=== PATIENT | female | born 1980 | race Caucasian/White ===

== ENCOUNTER 2017-02-13 05:54 | Day surgery (SDC) | payer OTHER ==
[~2017-02-13 05:54] MED LIST: DiMENhydriNATE IV* 50 MG/ML VIAL IV PUSH PRN; Morphine INJ* 2 MG/ML 1 ML CARPUJECT IV PRN; PROCHLORPERAZINE INJ 5 MG/ML 2 ML VIAL IV PRN; Scopolamine 1.5 mg* PATCH TRANSDERM PRN
[2017-02-13] MEDS ORDERED: Famotidine IV* 10 MG/ML 2 ML (20 mg) IV ONE (06:00)
[2017-02-13] MEDS ORDERED: Buffered Lidocaine 0.9% SYRIN* 5 ML/SYR SYRINGE INTRADERM ONE (06:00)
[2017-02-13] MEDS ORDERED: Buffered Lidocaine 0.9% SYRIN* 5 ML/SYR SYRINGE ONE (06:05)
[2017-02-13] MEDS ORDERED: Famotidine IV* 10 MG/ML 2 ML (20 mg) ONE (06:05)
[2017-02-13] MEDS ORDERED: ceFAZolin 2 GM PREMIX (*) 2 GM/50 ML BAG IVPB ONE (06:05)
[2017-02-13] MEDS ORDERED: Dexamethasone TAB* 0.5 MG PO ONE (06:30)
[2017-02-13] MEDS ORDERED: fentaNYL* 50 MCG/ML 2 ML VIAL (100 MCG VIAL) ONE ×2 (07:08→08:55)
[2017-02-13] MEDS ORDERED: KETAMINE HCL* 50 MG/ML 10 ML VIAL ONE (07:08)
[2017-02-13] MEDS ORDERED: Midazolam* 1 MG/ML 10 ML VIAL (10 MG) ONE (07:08)
[2017-02-13] MEDS ORDERED: Bupivacaine 0.5% SDV PF* 30 ML VIAL ONE (07:16)
[2017-02-13] MEDS ORDERED: Lidocaine 1% MPF wEPI 200,000* 30 ML SDV ONE (07:16)
[2017-02-13] MEDS ORDERED: Morphine INJ* 10 MG/ML 1 ML CARPUJECT ONE ×2 (07:35→08:55)
[2017-02-13] MEDS ORDERED: Ondansetron INJ* 2 MG/ML VIAL ONE (07:50)
[2017-02-13] MEDS ORDERED: Ketorolac INJ* 30 MG/ML 1 ML VIAL ONE (07:50)
[2017-02-13] MEDS ORDERED: Lidocaine 2% PF * 5 ML VIAL ONE (07:50)
[2017-02-13] MEDS ORDERED: Dexamethasone IV* 4 MG/ML 1 ML (4 MG) ONE (07:50)
[2017-02-13] MEDS ORDERED: Propofol* 10 MG/ML 20 ML BTL IV PUSH ONE (07:50)
[2017-02-13] MEDS: fentaNYL* 50 MCG/ML 2 ML VIAL (100 MCG VIAL) IV PRN ×2 (08:56→09:17)
[2017-02-13] MEDS ORDERED: oxyCODONE/Acetamin 5/325 MG* TAB ONE (09:02)
[2017-02-13] MEDS: oxyCODONE/Acetamin 5/325 MG* TAB PO PRN ×2 (09:03→09:04)
[2017-02-13] MEDS ORDERED: DiMENhydriNATE IV* 50 MG/ML VIAL ONE (09:27)
[2017-02-13] MEDS ORDERED: Scopolamine 1.5 mg* PATCH ONE (09:27)
[2017-02-13 10:18] VITALS: BP 121/68
--- NOTE | 2017-02-13 10:38 | OP ---
DATE OF OPERATION: 02/13/17 [facility] DATE OF : 76 SURGEON: Donal Mclean MD SEMICONDUCTOR BONDER: Roxie Thompson RPA ANESTHESIOLOGIST: Luc Haq MD ANESTHESIA: General. PRE-OP DIAGNOSES: 1. Painful hardware right ankle. 2. Nonunion medial malleolus right ankle. POST-OP DIAGNOSES: 1. Painful hardware right ankle. 2. Nonunion medial malleolus right ankle. OPERATIVE PROCEDURES: 1. Removal of hardware right ankle. 2. Removal bony nonunion medial malleolus. ESTIMATED BLOOD LOSS: Minimal. COMPLICATIONS: None. SUMMARY: Ms. Elkins is a 36-year-old female who 4 years ago had sustained a trimalleolar fracture. She underwent an ORIF of the lateral malleolus as the medial and posterior malleoli were only minimally displaced. Posteriorly, she healed in well as well as laterally, but that medial piece never fully healed in. She had been able to walk and get around and do activities, but had continued troubles with pain, both over the lateral hardware as well as over that medial malleolus. I discussed with her that removal of the plate and screws as well as the bony piece should work well to decrease her pain and improve her function. Risks of surgery such as infection, scar formation, stiffness, DVT, and pulmonary embolism were some of the risks discussed. She had wished to proceed with procedure. DESCRIPTION OF PROCEDURE: The patient was brought to the OR and LMA was placed. Right ankle was prepped and then draped. Skin over the incisional area was infiltrated using a 50:50 mixture of 0.5% Marcaine with 1% lidocaine with epinephrine. Incision was made using the old scar and was carried down through the skin and subcutaneous scar. I could easily palpate the screw heads and sharp dissection was carried out over the screw heads and used to dig out the scar from within the head itself, so the screw recycle driver could be fully seated. One by one, screws were removed. Periosteal elevator was then used to remove some of the bone that had grown over the edge of the plate and the plate itself was eventually freed up. Curette and small osteotome was used to stimulate the bone to encourage a healing response. Wound was irrigated using a bulb syringe and attention was turned medially. Incision was made a little bit towards the posterior aspect of the medial malleolus to stay away from the saphenous nerve and vein. Incision was carried down through the skin and subcutaneous tissues were bluntly divided. Fascia over the bone and deltoid were easily palpable and incision was made in line with those fibers. Using a freer, I could fall in to the nonunion area as well as come around where the posterior tib tendons ran inferiorly. Using the freer and periosteal, I was able to slowly expose around and a small extending incision had to be made in the fascia so that I could see a little bit better. With this, I could now come around that loose piece and piece was removed. Wound was irrigated using a bulb syringe and the fascia was repaired using 1 #2 Ethibond suture and then 2-0 Ethibond sutures. She was nice and stable with a drawer sign. Wound was again irrigated using a bulb syringe and the subcutaneous tissues were approximated with 2-0 Vicryl. Skin was closed using nylon. Sterile dressing and a posterior mold splint were applied in the OR. The patient had the LMA removed in the OR and was stable on transfer to the recovery room. DISPOSITION/DISCHARGE SUMMARY: Ms. Elkins is a 36-year-old female who just underwent removal of hardware and a bony nonunion from her right ankle. She tolerated the procedure well and there were no complications. She is currently rolling into the recovery room. When she wakes a bit more from her general anesthesia, can tolerate p.o., has her pain well controlled and void, she will be discharged home. Prescription for [place] has been e-scribed in. She has instructions to keep her dressing clean, dry, and intact for the next 3 days, but after that may take dressing down, cover sutures with bandage, may shower, wash and get it wet, but should not soak it. She can go into the CAM walker that she has at home. She may fully weight bear as tolerated. I would like to see her in the office in approximately 10 days, remove her sutures, make sure she is doing well. If there are any problems or anything odd should occur, there are instructions to give the office a call. [id number]/[facility] #: [id number] DENNIS
[2017-02-16] MEDS ORDERED: Scopolamine PATCH Remove* 1 NOTE MISC PATCH OFF ONE (05:41)
== END 2017-02-13 10:49 | disposition home or self-care (01) ==
LOC: OR 05:54
PROVIDERS: ATTEND Orthopaedic Surgery
DX: T84.84XA Pain due to internal orthopedic prosthetic devices, implants and grafts, initial encounter (principal); Y83.1 Surgical operation with implant of artificial internal device as the cause of abnormal reaction of the patient, or of later complication, without mention of misadventure at the time of the procedure; S82.51XK Displaced fracture of medial malleolus of right tibia, subsequent encounter for closed fracture with nonunion; X58.XXXD Exposure to other specified factors, subsequent encounter; Y92.9 Unspecified place or not applicable; F17.200 Nicotine dependence, unspecified, uncomplicated; J45.909 Unspecified asthma, uncomplicated
CPT/HCPCS: 88300; A9270-GY; J0690; J1100; J1240; J1885; J2001; J2250; J2270; J2405; J2704; J3010

== ENCOUNTER 2017-12-09 11:35 | Emergency (ER) | payer OTHER ==
[2017-12-09 11:43] VITALS: BP 144/71
--- NOTE | 2017-12-09 11:57 | ED ---
Lower Extremity - HPI Summary HPI Summary: Patient presents with right ankle pain since injury last night. She reports she was dancing after having a couple of beers and as she was walking down the [place], she twisted her ankle and had abrupt swelling and pain. She denies numbness, tingling, weakness but has pain with weightbearing. She applied ice last night and this morning and took ibuprofen last night but has not taken anything this morning. She reports no pain with her leg elevated and at rest and she is able to move her ankle however does report some stiffness with flexion and extension. She's been using crutches to avoid weightbearing. She reports a history of right ankle surgery which required screws and plates a few years ago with Dr. Mclean. He has since removed these and patient has been doing well however she reports this ankle is "weak" as result. No other injuries to report as result of this injury. 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 Hx Last Menstrual Period: 2007 Pain Intensity: 9 - Allergies/Home Medications Allergies/Adverse Reactions: Allergies Allergy/AdvReac Type Severity Reaction Status Date / Time gabapentin Allergy Altered Verified 12/09/17 11:44 Mental Status PMH/Surg Hx/FS Hx/Imm Hx Previously Healthy: Yes Endocrine/Hematology History: Denies: Hx Anticoagulant Therapy, Hx Blood Disorders, Hx Diabetes, Hx Systemic Lupus Erythematosus, Hx Thyroid Disease Cardiovascular History: Denies: Hx Congestive Heart Failure, Hx Hypertension, Hx Pacemaker/ICD, Other Cardiovascular Problems/Disorders Respiratory History: Reports: Hx Asthma - INHALER PRN, Hx Pneumonia Denies: Hx Chronic Obstructive Pulmonary Disease (COPD), Other Respiratory Problems/Disorders GI History: Reports: Hx Gastroesophageal Reflux Disease Denies: Hx Ulcer, Other GI Disorders History: Denies: Hx Dialysis, Hx Renal Disease Musculoskeletal History: Reports: Hx Arthritis - HANDS, BACK, Hx Back Problems - 2 "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 Mclean Denies: Hx Rheumatoid Arthritis, Hx Scoliosis Sensory History: Denies: Hx Contacts or Glasses, Hx Hearing Aid Opthamlomology History: Denies: Hx Contacts or Glasses Neurological History: Denies: Hx Headaches, Other Neuro Impairments/Disorders Psychiatric History: Reports: Hx Anxiety - NO MEDS CURRENTLY, Hx Depression - NO MEDS Denies: Hx Panic Disorder - Cancer History Hx Chemotherapy: No - Surgical History Surgery Procedure, Year, and Place: 2000 & 2004 LAPRASCOPIC. 2007 HYSTERECTOMY and Oophorectomy [facility]. 1997 LEFT LITTLE FINGER fracture ORIF [facility]. right ankle ORIF, 02/2015, [facility] - 5 screws and a plate in place. tonsillectomy Hx Anesthesia Reactions: No Infectious Disease History: No Infectious Disease History: Reports: Hx Shingles - in 5th grade Denies: Hx Clostridium Difficile, Hx Hepatitis, Hx Human Immunodeficiency Virus (HIV), Hx of Known/Suspected MRSA, Hx Tuberculosis, Hx Known/Suspected VRE , Hx Known/Suspected VRSA, History Other Infectious Disease, Traveled Outside the [place] in Last 30 Days - Family History Known Family History: Positive: None Negative: Blood Disorder - Social History Occupation: Employed Full-time - laundry person at a hotel Alcohol Use: Weekly Alcohol Amount: 2-3 DRINKS/WEEK Substance Use Type: Reports: Marijuana - occasionally Hx Tobacco Use: Yes - quit Smoking Status (MU): Former Smoker Type: Cigarettes Amount Used/How Often: 1/3 PPD Have You Smoked in the Last Year: No Review of Systems Positive: Arthralgia, Decreased ROM - d/t stiffness, Edema Positive: Bruising Neurological: Negative Psychological: Normal All Other Systems Reviewed And Are Negative: Yes Physical Exam Triage Information Reviewed: Yes Vital Signs On Initial Exam: Initial Vitals Temp Pulse Resp BP Pulse Ox 98.6 F 87 20 144/71 99 12/09/17 11:40 12/09/17 11:40 12/09/17 11:40 12/09/17 11:40 12/09/17 11:40 Vital Signs Reviewed: Yes Appearance: Positive: Well-Appearing, No Pain Distress, Obese Skin: Positive: Warm, Skin Color Reflects Adequate Perfusion, Dry - bradley edema and ecchymosis over Rt lateral malleolous - warm to touch and TTP - no skin breakdown; healed scarring over medial and lateral Rt ankles Head/Face: Positive: Normal Head/Face Inspection Eyes: Positive: EOMI ENT: Positive: Hearing grossly normal Respiratory/Lung Sounds: Positive: Breath Sounds Present Cardiovascular: Positive: Pulses are Symmetrical in both Upper and Lower Extremities Musculoskeletal: Positive: Strength/ROM Intact - no bradley laxity, Pain @ - Rt lateral malleolus and anterior ankle mortise; tibia and fibula prox to ankle joint and MT's and toes and NTTP Neurological: Positive: Normal, Sensory/Motor Intact, Alert, Oriented to Person Place, Time, CN Intact II-III, Reflexes Intact Psychiatric: Positive: Normal Diagnostics - Vital Signs Vital Signs Temp Pulse Resp BP Pulse Ox 12/09/17 11:40 98.6 F 87 20 144/71 99 - Laboratory Lab Statement: Any lab studies that have been ordered have been reviewed, and results considered in the medical decision making process. Lower Extremity Course/Dx - Course Course Of Treatment: Rt ankle XR: distal fib fx, non-displaced and no widening of ankle mortise. Applied cam boot and pt already has cructhes. Will f/u w/ ortho this week. Reviewed danger s/sx of when to go to ED - Diagnoses Provider Diagnoses: Closed fracture of right distal fibula Discharge - Sign-Out/Discharge Documenting (check all that apply): Patient Departure All imaging exams completed and their final reports reviewed: Yes - Discharge Plan Condition: Stable Disposition: HOME Patient Education Materials: Ankle Fracture (ED), Crutch Instructions (ED) Forms: *Work Release Referrals: Donal Mclean MD [Medical Doctor] - Additional Instructions: REST, ICE, ELEVATE AND KEEP CAM BOOT IN PLACE UNTIL SEEN BY ORTHOPEDICS. Use cructhes to avoid weight bearing. Call orthopedics Monday to schedule follow-up this week. You may take ibuprofen alternating with acetaminophen as needed for pain. *If you develop numbness, tingling, weakness, swelling or skin discoloration, remove boot and elevate leg for 20 minutes. If symptoms persist, return to ED - Billing Disposition and Condition Condition: STABLE Disposition: Home
--- NOTE | 2017-12-09 12:17 | RAD ---
HISTORY: Rt ankle injury w/ lat swelling, bruising COMPARISONS: April 13, 2016 VIEWS: 3 , Frontal, lateral, and oblique views of the right ankle FINDINGS: BONE DENSITY: Normal. BONES: There has been interval removal of the fixation plate of the distal fibula. There is an oblique nondisplaced fracture of the distal fibula. There are multiple bone fragments consistent with remote avulsion injury of the medial malleolus. JOINTS: There is no arthropathy. The tibiotalar and fibulotalar ventricles are normal. ALIGNMENT: There is no dislocation. SOFT TISSUES: There is circumferential soft tissue swelling. OTHER FINDINGS: None. IMPRESSION: 1. OBLIQUE NONDISPLACED FRACTURE OF THE DISTAL FIBULA. 2. EVIDENCE OF REMOTE AVULSION INJURY OF THE MEDIAL MALLEOLUS. 3. SOFT TISSUE SWELLING.
== END 2017-12-09 12:55 | disposition home or self-care (01) ==
LOC: UCEAST 11:35
DX: S82.831A Other fracture of upper and lower end of right fibula, initial encounter for closed fracture (principal); X50.1XXA Overexertion from prolonged static or awkward postures, initial encounter; Y93.01 Activity, walking, marching and hiking; Y92.89 Other specified places as the place of occurrence of the external cause; J45.909 Unspecified asthma, uncomplicated; M47.819 Spondylosis without myelopathy or radiculopathy, site unspecified; M19.042 Primary osteoarthritis, left hand; M19.041 Primary osteoarthritis, right hand; Z87.891 Personal history of nicotine dependence
CPT/HCPCS: 99212; G0463

== ENCOUNTER 2018-04-19 07:47 | Emergency (ER) | payer OTHER ==
[2018-04-19 07:57] VITALS: BP 109/62
--- NOTE | 2018-04-19 08:32 | UC ---
Eye Complaint HPI - HPI Summary HPI Summary: MD: KRISTA Right eye redness and and tiny area of swelling according to the patient. No significant redness or discharge. It started a few weeks ago and has not gotten better. No visual disturbance or pain. Patient works in a laundry. - History of Current Complaint Chief Complaint: UCEye Stated Complaint: R EYE COMPLAINT Time Seen by Provider: 04/19/18 08:23 Hx Last Menstrual Period: 2007 Pain Intensity: 3 - Allergies/Home Medications Allergies/Adverse Reactions: Allergies Allergy/AdvReac Type Severity Reaction Status Date / Time gabapentin Allergy Altered Verified 04/19/18 07:57 Mental Status PMH/Surg Hx/FS Hx/Imm Hx Other History Of: Negative For: Anticoagulant Therapy - Surgical History Surgical History: Yes Surgery Procedure, Year, and Place: 2000 & 2004 LAPRASCOPIC. 2007 HYSTERECTOMY and Oophorectomy [facility]. 1997 LEFT LITTLE FINGER fracture ORIF [facility]. right ankle ORIF, 02/2015, [facility] - 5 screws and a plate in place. tonsillectomy - Family History Known Family History: Positive: None Negative: Blood Disorder - Social History Alcohol Use: Weekly Alcohol Amount: 2-3 DRINKS/WEEK Substance Use Type: Marijuana Substance Use Comment - Amount & Last Used: RANDOM Smoking Status (MU): Former Smoker Type: Cigarettes Amount Used/How Often: 1/3 PPD Have You Smoked in the Last Year: No When Did the Patient Quit Smoking/Using Tobacco: 2011 Review of Systems All Other Systems Reviewed And Are Negative: Yes Constitutional: Positive: Negative Skin: Positive: Negative Eyes: Positive: Eye Redness. Negative: Blurred Vision, Diplopia, Drainage, Photophobia - slight injection right scleara; small area of chemosis ENT: Positive: Negative Respiratory: Positive: Negative Cardiovascular: Positive: Negative Gastrointestinal: Positive: Negative Genitourinary: Positive: Negative Motor: Positive: Negative Neurovascular: Positive: Negative Musculoskeletal: Positive: Negative Neurological: Positive: Negative Psychological: Positive: Negative Physical Exam - Summary Physical Exam Summary: Appearance: The patient is well-appearing, is in no pain or distress, and is well-nourished. Eyes: Pupils are equal and reactive to light and accommodation. Extra ocular muscle movement is intact. Right eye: On the sclera just lateral to the cornea , there is a 2 mm area of chemosis with a small area of injection. There is no disturbance to vision. No evident conjunctivitis or perilimbal injection. There is no rash near the eye. ENT: The hearing is grossly normal, the pharynx is normal, and the TMs are normal. There is no muffled or hoarse voice. No stridor. Neck: The neck is supple and there is no lymphadenopathy. Respiratory: The chest is nontender to palpation and without crepitus. The lungs are clear, there are normal breath sounds, and there is no respiratory distress. No wheezes, rales or rhonchi. Cardiovascular: Heart sounds reveal a regular rate and rhythm. There are no clicks, rubs or murmurs. There are no carotid bruits or thrills. Circulation is grossly intact. Abdomen: The abdomen is soft and nontender. There is no organomegaly. Bowel sounds are present and within normal limits. No point tenderness at McBurneys point. Musculoskeletal: Strength is intact. The patient moves all extremities. Neurological: The patient is alert. Motor and sensory are examination grossly intact. Speech is normal. Psychological: The patient displays age appropriate behavior Skin: Negative for rashes. Appearance: Well-Appearing, No Pain Distress Vital Signs: Initial Vital Signs Temp 96.6 F 04/19/18 07:51 Pulse 74 04/19/18 07:51 Resp 18 04/19/18 07:51 BP 109/62 04/19/18 07:51 Pulse Ox 98 04/19/18 07:51 Eye Exam: Normal Eyes: Positive: Conjunctiva Inflamed - slight injection sclera right eye, lateral aspect, Other: - small area of chemosis less than 2 mm right sclera ENT Exam: Normal Dental Exam: Normal Neck exam: Normal Neck: Positive: 1 Respiratory Exam: Normal Cardiovascular Exam: Normal Abdominal Exam: Normal Musculoskeletal Exam: Normal Neurological Exam: Normal Psychological Exam: Normal Skin Exam: Normal Eye Complaint Course/Dx - Course Course Of Treatment: Patient c/o small area of redness in the sclera of the right lateral to the limbus. She also notes a small dot approximately 2 mm and injection lateral to that abnormality. Physical exam suggests a tiny area of chemosis, possibly from irritation or scleral trauma. There is no other evidence of trauma including hyphema. There is no discharge noted. The patient 's vision is normal. Remainder of her visual examination and her eye exam is normal. Pupils are fully reactive. There is no perilimbal erythema. There is no skin rash near the eye. My diagnosis is localized irritation and I will start her on erythromycin ointment to protect the eye and to prevent any development of conjunctivitis. She knows to follow up in 3 days with ophthalmology if this condition does not improve or if it should worsen. - Differential Dx/Diagnosis Differential Diagnosis/HQI/PQRI: Conjunctivitis, Corneal Abrasion, Hyphema Provider Diagnosis: Chemosis of right conjunctiva Discharge - Sign-Out/Discharge Documenting (check all that apply): Patient Departure All imaging exams completed and their final reports reviewed: No Studies - Discharge Plan Condition: Stable Disposition: HOME Prescriptions: Erythromycin OPTH OINT* [Erythromycin 0.5% OPTH OINT*] 1 applic RIGHT EYE TID # 1 ophth.oint MDD every 8 hours Patient Education Materials: Conjunctivitis (ED) Referrals: Hussein Thomas MD [Primary Care Provider] - Additional Instructions: WE DISCUSSED: PLEASE SEEK CARE AT THE EMERGENCY DEPARTMENT IF SYMPTOMS WORSEN OR IF NEW SYMPTOMS DEVELOP. FOLLOW UP WITH DR. KRAMER, [phone], IF CONDITION CONTINUES BEYOND 3 DAYS WITHOUT IMPROVEMENT. YOUR DIAGNOSIS IS: RIGHT EYE IRRITATION FROM UNKNOWN EXPOSURE YOUR PRESCRIPTION RECOMMENDATION IS: ERYTHROMYCIN OINTMENT, THREE TIMES A DAY FOR 4 TO 7 DAYS OTHER INSTRUCTIONS: RECHECK AT ANY TIME WITH DR. KRAMER IF YOUR VISION IS AFFECTED, IF YOUR EYE GETS MORE RED OR MORE IRRITATED. I'm giving you an antibiotic to protect eye and prevent infection. FOR PAIN AND/OR SLEEP: For pain: Ibuprofen (Motrin and other brand names) 400-600mg PLUS acetaminophen (Tylenol and other brand names) 500mg - 1000mg every 8 hours. Maximum is 3 doses a day. If this dosage is required for more than 5 days, you should re-check with your doctor. The combination of these two over-the- counter medications can be more effective than each one taken alone. Please check with the pharmacist if you have questions about your allergies to these medications. - Billing Disposition and Condition Condition: STABLE Disposition: Home
== END 2018-04-19 08:45 | disposition home or self-care (01) ==
LOC: UCEAST 07:47
DX: H11.421 Conjunctival edema, right eye (principal); Z88.8 Allergy status to other drugs, medicaments and biological substances; Z87.891 Personal history of nicotine dependence
CPT/HCPCS: 99212; G0463

== ENCOUNTER 2018-05-23 14:33 | Emergency (ER) | payer OTHER ==
[2018-05-23] MEDS ORDERED: predniSONE TAB* 20 MG PO ONE (14:40)
[2018-05-23] MEDS ORDERED: Albuterol 2.5 MG/3 ML NEB.SOL* (0.083%) INH ONE (14:40)
[2018-05-23] MEDS ORDERED: Ipratropium 0.5MG/2.5ML NEB* 0.5 MG/2.5 ML NEB.SOLN INH ONE (14:40)
[2018-05-23 14:45] VITALS: BP 130/90
--- NOTE | 2018-05-23 14:53 | UC ---
Shortness of Breath HPI - HPI Summary HPI Summary: SEVERAL DAYS OF WORSENING DRY COUGH AND SOB. INHALER NO LONGER FEELS EFFECTIVE. WAKING UP AT NIGHT SOB AND COUGHING. HAS H/O ASTHMA. HAS HAD URI SX FOR A COUPLE OF WEEKS. SEVERAL EPISODES OF POST-TUSSIVE EMESIS. NO FEVER. - History of Current Complaint Stated Complaint: COUGH Time Seen by Provider: 05/23/18 14:39 Hx Obtained From: Patient Hx Last Menstrual Period: 2006 Onset/Duration: Gradual Onset, Lasting Days, Still Present Timing: Constant Current Severity: Moderate Dyspnea At: Rest Aggrevating Factors: Movement Alleviating Factors: Nothing Associated Signs & Symptoms: Positive: Cough (Nonproductive), Wheezing, Nasal Congestion. Negative: Chest Pain w/Cough, Fever, Chills - Allergy/Home Medications Allergies/Adverse Reactions: Allergies Allergy/AdvReac Type Severity Reaction Status Date / Time gabapentin Allergy Altered Verified 05/23/18 14:47 Mental Status PMH/Surg Hx/FS Hx/Imm Hx Respiratory History: Asthma Other History Of: Negative For: Anticoagulant Therapy - Surgical History Surgical History: Yes Surgery Procedure, Year, and Place: 2000 & 2004 LAPRASCOPIC. 2007 HYSTERECTOMY and Oophorectomy [facility]. 1997 LEFT LITTLE FINGER fracture ORIF [facility]. right ankle ORIF, 02/2015, [facility] - 5 screws and a plate in place. tonsillectomy - Family History Known Family History: Positive: None Negative: Blood Disorder - Social History Alcohol Use: Weekly Alcohol Amount: 2-3 DRINKS/WEEK Substance Use Type: Marijuana Substance Use Comment - Amount & Last Used: RANDOM Smoking Status (MU): Former Smoker Type: Cigarettes Amount Used/How Often: 1/3 PPD Have You Smoked in the Last Year: No When Did the Patient Quit Smoking/Using Tobacco: 2011 Review of Systems All Other Systems Reviewed And Are Negative: Yes Constitutional: Positive: Negative ENT: Positive: Ear Ache, Nasal Discharge Respiratory: Positive: Shortness Of Breath, Cough Cardiovascular: Positive: Negative Gastrointestinal: Positive: Vomiting - post-tussive. Negative: Nausea Physical Exam Triage Information Reviewed: Yes Appearance: No Pain Distress, Well-Nourished Vital Signs: Initial Vital Signs Temp 98 F 05/23/18 14:40 Pulse 97 05/23/18 14:40 Resp 32 05/23/18 14:40 BP 130/90 05/23/18 14:40 Pulse Ox 95 05/23/18 14:40 Vital Signs Reviewed: Yes Eyes: Positive: Conjunctiva Clear ENT: Positive: Hearing grossly normal, Pharyngeal erythema, TMs normal Neck: Positive: Supple, Nontender, No Lymphadenopathy Respiratory: Positive: Lungs clear, Normal breath sounds, Respiratory distress - mild increased work of breathing, tachypneic. Negative: Wheezing Cardiovascular: Positive: Tachycardia Abdomen Description: Positive: Soft Musculoskeletal: Positive: No Edema Neurological: Positive: Alert Psychological: Positive: Age Appropriate Behavior Skin: Negative: Rashes Re-Evaluation - Re-Evaluation First Eval Re-Evaluation Time: 15:45 - FEELS BETTER AFTER PREDNISONE AND NEB TX. READY FOR D/C Change: Improved Shortness of Breath Dx - Differential Dx/Diagnosis Provider Diagnosis: Asthma exacerbation Discharge - Sign-Out/Discharge Documenting (check all that apply): Patient Departure All imaging exams completed and their final reports reviewed: No Studies - Discharge Plan Condition: Stable Disposition: HOME Prescriptions: Albuterol 2.5MG/3ML (0.083%)* [Ventolin 2.5 MG/3 ML NEB.HARSHA*] 2.5 mg INH Q4H PRN #1 box PRN Reason: Wheezing predniSONE TAB* [Deltasone TAB*] 50 mg PO DAILY #4 tab Patient Education Materials: Asthma (ED) Forms: *Work Release Referrals: Hussein Thomas MD [Primary Care Provider] - If Needed Additional Instructions: YOUR RECENT URI LIKELY TRIGGERED AN ASTHMA EXACERBATION. YOU FELT IMPROVED AFTER 60 MG OF PREDNISONE AND ALBUTEROL/IPRATROPIUM NEBULIZER TREATMENT. CONTINUE PREDNISONE FOR 4 MORE DAYS. ALBUTEROL NEBS IF NEEDED. SEEK FOLLOW-UP IF YOU'RE NOT CONTINUING TO IMPROVE EXPECTED. GO TO THE ER WITHOUT FAIL IF YOU DEVELOP WORSENING SHORTNESS OF BREATH, FEVER, NAUSEA OR ANY OTHER CONCERNING SYMPTOMS. - Billing Disposition and Condition Condition: STABLE Disposition: Home
== END 2018-05-23 16:03 | disposition home or self-care (01) ==
LOC: UCEAST 14:33
DX: J45.901 Unspecified asthma with (acute) exacerbation (principal); Z87.891 Personal history of nicotine dependence; Z88.8 Allergy status to other drugs, medicaments and biological substances
CPT/HCPCS: 99212; G0463; J7512

== ENCOUNTER 2018-10-09 16:24 | Emergency (ER) | payer OTHER ==
[2018-10-09 16:31] VITALS: BP 118/62
--- NOTE | 2018-10-09 16:45 | UC ---
Ear Complaint HPI - HPI Summary HPI Summary: 2 WEEKS OF INTERMITTENT RIGHT EAR PAIN. NO CHANGE IN HEARING. NO DRAINAGE FROM THE EAR. NO URI SX. NO FEVER. - History of Current Complaint Chief Complaint: UCEar Stated Complaint: EAR ACHE Time Seen by Provider: 10/09/18 16:32 Hx Obtained From: Patient Hx Last Menstrual Period: 2006 Onset/Duration: Gradual Onset, Lasting Weeks, Still Present Severity Initially: Moderate Severity Currently: Moderate Pain Intensity: 5 Pain Scale Used: 0-10 Numeric Aggravating Factors: Other - chewing Alleviating Factors: Nothing Associated Signs/Symptoms: Negative: Discharge, Hearing Loss, Trauma to Ear, Swelling @, URI Symptoms - Allergies/Home Medications Allergies/Adverse Reactions: Allergies Allergy/AdvReac Type Severity Reaction Status Date / Time gabapentin Allergy Altered Verified 10/09/18 16:32 Mental Status PMH/Surg Hx/FS Hx/Imm Hx Respiratory History: Asthma Other History Of: Negative For: Anticoagulant Therapy - Surgical History Surgical History: Yes Surgery Procedure, Year, and Place: 2000 & 2004 LAPRASCOPIC. 2007 HYSTERECTOMY and Oophorectomy [facility]. 1997 LEFT LITTLE FINGER fracture ORIF [facility]. right ankle ORIF, 02/2015, [facility] - 5 screws and a plate in place. tonsillectomy - Family History Known Family History: Positive: None Negative: Blood Disorder - Social History Alcohol Use: Occasionally Alcohol Amount: 2-3 DRINKS/WEEK Substance Use Type: Marijuana Substance Use Comment - Amount & Last Used: RANDOM Smoking Status (MU): Current Some Day Smoker Type: Cigarettes Amount Used/How Often: 1/3 PPD Have You Smoked in the Last Year: No When Did the Patient Quit Smoking/Using Tobacco: 2011 Review of Systems All Other Systems Reviewed And Are Negative: Yes Constitutional: Positive: Negative ENT: Positive: Ear Ache Respiratory: Positive: Negative Cardiovascular: Positive: Negative Gastrointestinal: Positive: Negative Physical Exam Triage Information Reviewed: Yes Appearance: Well-Appearing, No Pain Distress, Well-Nourished Vital Signs: Initial Vital Signs Temp 97.2 F 10/09/18 16:27 Pulse 68 10/09/18 16:27 Resp 16 10/09/18 16:27 BP 118/62 10/09/18 16:27 Pulse Ox 98 10/09/18 16:27 Vital Signs Reviewed: Yes Eyes: Positive: Conjunctiva Clear ENT: Positive: Hearing grossly normal, Pharynx normal, TMs normal, Other - TTP RIGHT TMJ Neck: Positive: Supple, Nontender, No Lymphadenopathy Respiratory Exam: Normal Cardiovascular Exam: Normal Abdomen Description: Positive: Soft Musculoskeletal: Positive: No Edema Neurological: Positive: Alert Psychological: Positive: Age Appropriate Behavior Skin: Negative: Rashes Ear Complaint Course/Dx - Course Course Of Treatment: NO OTITIS ON EXAM. SX AND EXAM MORE CONSISTENT WITH TMJ. PT HAS NOT SEEN A DENTIST IN SEVERAL YEARS. ENCOURAGED HER TO ESTABLISH WITH A DENTIST TO EVALUATE FOR JAW CLENCHING/TEETH GRINDING. SOFT FOODS. OTC NSAIDS NEEDED. HEAT. F/U TMJ SPECIALIST/PCP. - Differential Dx/Diagnosis Provider Diagnosis: Arthralgia of right temporomandibular joint Discharge - Sign-Out/Discharge Documenting (check all that apply): Patient Departure All imaging exams completed and their final reports reviewed: No Studies - Discharge Plan Condition: Stable Disposition: HOME Patient Education Materials: Temporomandibular Disorder (ED) Referrals: Esther Mcallister MD [Primary Care Provider] - 2 Weeks Additional Instructions: What are temporomandibular joint disorders? Temporomandibular joint disorders are problems with the jaw joint and the muscles around it. The jaw joint, called the temporomandibular joint, is located in front of the ear where the jawbone connects to your head. To feel the joint, place your finger on your cheek just in front of your ear and then open and close your mouth. When doctors refer to temporomandibular joint disorders, they often call it TMJ , for short. TMJ can be caused by many problems, including arthritis. More often it is due to a combination of stress, jaw clenching, teeth grinding, and other things that strain the jaw joint and the muscles around it. What are the symptoms of TMJ? The main symptom of TMJ is a dull pain in the jaw muscles that doesnt go away. The pain is often on just one side of the face , near the ear. Sometimes the pain also affects the ear, jaw, or back of the neck. It is usually worse when chewing. Some people just have headaches with TMJ. Others might hear a clicking or popping sound or have a crunchy feeling in the joint when they open and close their mouth. The most common presenting signs and symptoms are: - Pain (96.1 percent) - Ear discomfort or dysfunction (82.4 percent) - Headache (79.3 percent) - TMJ discomfort or dysfunction (75.0 percent) Should I see a doctor or nurse? If the pain in your face or jaw is bothering you and does not go away, you should see your doctor or nurse. What tests might I need? There is no single test that can show if you have TMJ. Your doctor or nurse should be able to tell if you have TMJ by learning about your symptoms and doing an exam. Unless the doctor finds something unusual in the exam, most patients will NOT need X-rays or an MRI (an imaging test that creates pictures of the inside of your body). How is TMJ treated? No single treatment for TMJ works for everyone. Most of the time, medicines and simple lifestyle changes can help. Most patients get better over time, even without treatment, so patience is important. Your doctor or nurse will help you find the right mix of treatments for you. He or she might refer you to a dentist who specializes in TMJ. Treatment options include: - Medicines to relieve pain and relax the muscles There are several types of medicines used to treat TMJ. These include nonsteroidal antiinflammatory drugs ( NSAIDs), muscle relaxants, and certain medicines used for depression. ( Medicines for depression can relieve pain even in people who are not depressed. ) Your doctor will decide which medicine or group of medicines is best for you. - Jaw exercises There are simple jaw exercises that seem to help some people. Ask your doctor to show you how to do them. - Bite plates/splints These are special devices that fit in your mouth and keep you from grinding your teeth at night. They are made out of either a hard or soft plastic and might be made specially to fit your mouth. If you have sleep apnea, be sure to tell your doctor as the bite plate or splint might make your sleep apnea worse. If these treatments dont help, your doctor might suggest that you see a specialist, such as an oral surgeon. The specialist might use medicines given by injection (shots) to treat the pain. It is rare that people need surgery for TMJ. Is there anything I can do on my own to feel better? Yes. You might feel better if you: - Avoid doing things that make the pain worse, such opening your mouth too wide. - Eat soft foods that dont require a lot of chewing. - Practice relaxing You can learn methods to relax your body, such as doing deep breathing exercises. Ask your doctor or nurse about these methods. Relaxing the mind can help with how the body feels pain. People can learn to quiet their pain or make it less bothersome. - Use ice packs to ease the pain Use a bag of ice, bag of frozen peas, or cold gel pack once every 2 hours, for 20 minutes each time. Put a towel or cloth between the ice and your skin. Do not put the ice directly on your skin. - Put heat on the painful area Wet a clean washcloth with warm water and put it on the area. When the washcloth cools, reheat it with warm water and put it back on. Repeat these steps for 10 to 15 minutes every few hours. - Avoid stimulants, such as coffee, tea, moshe, or decongestant medicines, since these can make your anxiety worse. TMJ SPECIALIST DR. DON SAUNDERS, [address] [place] [address] [facility] DDS Dentist Office [address], [place] [address] Donal Aaron, DDS [address] [place] [address] Donn Cui D.D.S. [address], [place] [id number] Opens at 8am - Billing Disposition and Condition Condition: STABLE Disposition: Home
== END 2018-10-09 16:56 | disposition home or self-care (01) ==
LOC: UCEAST 16:24
DX: M26.621 Arthralgia of right temporomandibular joint (principal); J45.909 Unspecified asthma, uncomplicated; F17.210 Nicotine dependence, cigarettes, uncomplicated
CPT/HCPCS: 99211; G0463

== ENCOUNTER 2019-02-19 13:01 | Emergency (ER) | payer OTHER ==
--- NOTE | 2019-02-19 13:11 | UC ---
Respiratory Complaint HPI - HPI Summary HPI Summary: 38 yo female presents with URI symptoms. She tells me that for the last 2 weeks she has had "cold symptoms" consisting of sinus symptoms, sore throat, and dry cough. Over the last 2 days her cough has been much more persistent and she feels short of breath at times. She has a history of moderate asthma and uses an albuterol inhaler and nebulizer at home. She has been using these daily with great intermittent relief, but symptoms return soon after. Has been using her inhaler more frequently. Has not been taking anything OTC for her symptoms. Denies fever, chills, rash, chest pain, abdominal pain, n/v. She does smoke daily - History of Current Complaint Stated Complaint: COUGH VOMITING HEAD CONGESTION Time Seen by Provider: 02/19/19 13:11 Hx Obtained From: Patient Hx Last Menstrual Period: 2006 Onset/Duration: Gradual Onset Severity Initially: Moderate Severity Currently: Moderate Pain Intensity: 8 Pain Scale Used: 0-10 Numeric Character: Cough: Nonproductive - Allergies/Home Medications Allergies/Adverse Reactions: Allergies Allergy/AdvReac Type Severity Reaction Status Date / Time gabapentin Allergy Altered Verified 02/19/19 13:20 Mental Status Home Medications: Home Medications Ludens Cough Drops 1 lozenge PO PRN 02/19/19 [History] PMH/Surg Hx/FS Hx/Imm Hx Respiratory History: Asthma Other History Of: Negative For: Anticoagulant Therapy - Surgical History Surgical History: Yes Surgery Procedure, Year, and Place: 2000 & 2004 LAPRASCOPIC. 2007 HYSTERECTOMY and Oophorectomy [facility] [place]. 1997 LEFT LITTLE FINGER fracture ORIF [facility] [place]. right ankle ORIF, 02/2015, [facility] - 5 screws and a plate in place. tonsillectomy - Family History Known Family History: Positive: None Negative: Blood Disorder - Social History Occupation: Employed Full-time Lives: With Family Alcohol Use: Occasionally Alcohol Amount: 2-3 DRINKS/WEEK Substance Use Type: Marijuana Substance Use Comment - Amount & Last Used: RANDOM Smoking Status (MU): Current Some Day Smoker Type: Cigarettes Amount Used/How Often: 1/3 PPD Have You Smoked in the Last Year: No When Did the Patient Quit Smoking/Using Tobacco: 2011 Review of Systems All Other Systems Reviewed And Are Negative: No Constitutional: Positive: Negative Skin: Positive: Negative Eyes: Positive: Negative ENT: Positive: Sore Throat, Nasal Discharge, Sinus Congestion, Sinus Pain/ Tenderness Respiratory: Positive: Cough Cardiovascular: Positive: Negative Gastrointestinal: Positive: Negative Neurological: Positive: Negative Psychological: Positive: Negative Physical Exam - Summary Physical Exam Summary: GENERAL: NAD. WDWN. No pain distress. SKIN: No rashes, sores, lesions, or open wounds. HEENT: Head: AT/NC Eyes: Conjunctiva clear without inflammation or discharge. Ears: Hearing grossly normal. TMs intact, no bulging, erythema, or edema. Nose: Nasal mucosa pink and moist. NTTP maxillary and frontal sinus. Throat: Posterior oropharynx without exudates, erythema, or tonsillar enlargement. Uvula midline. NECK: Supple. Nontender. No lymphadenopathy. CHEST: Mild wheezing throughout. No r/r. No accessory muscle use. Increased resp rate CV: RRR. Pulses intact. Cap refill <2seconds NEURO: Alert. PSYCH: Age appropriate behavior. Triage Information Reviewed: Yes Vital Signs: Vital Signs (72 hours) 02/19/19 13:15 Temperature 96.6 F Pulse Rate 87 Respiratory 24 Rate Blood Pressure 122/65 (mmHg) O2 Sat by Pulse 96 Oximetry Vital Signs Reviewed: Yes Diagnostics - Radiology CXR Radiology Interpretation Completed By: Radiologist Summary of Radiographic Findings: IMPRESSION: No active cardiopulmonary disease is noted. Respiratory Course/Dx - Course Course Of Treatment: CXR as above. In the clinic she was given a duoneb treatment and 125mg of solumedrol with great improvement. Her wheezing resolved and her breathing was regular s/p. Suspect bronchitis/asthma exacerbation. - Differential Dx/Diagnosis Provider Diagnosis: Asthma exacerbation, Bronchitis Discharge ED - Sign-Out/Discharge Documenting (check all that apply): Patient Departure All imaging exams completed and their final reports reviewed: Yes - Discharge Plan Condition: Stable Disposition: HOME Prescriptions: Albuterol 2.5MG/3ML (0.083%)* [Ventolin 2.5 MG/3 ML NEB.HARSHA*] 2.5 mg INH Q4H PRN #30 neb.harsha PRN Reason: Sob/Wheezing Albuterol HFA INHALER* [Ventolin HFA Inhaler*] 1 - 2 puff INH Q6H PRN #1 mdi PRN Reason: Sob/Wheezing Benzonatate CAP* [Tessalon 100 MG CAP*] 100 mg PO TID PRN #21 cap PRN Reason: Cough Codeine Phosphate/Guaifenesin [Guaifen-Codeine 100-10 mg/5 ml] 5 ml PO BEDTIME PRN #35 ml MDD 5ml PRN Reason: Cough predniSONE TAB* [Deltasone 20 MG TAB*] 40 mg PO DAILY #10 tab Patient Education Materials: Asthma (ED) Referrals: Esther Mcallister MD [Primary Care Provider] - Additional Instructions: If you develop a fever, shortness of breath, chest pain, new or worsening symptoms - please call your PCP or go to the ED immediately. - Billing Disposition and Condition Condition: STABLE Disposition: Home
[2019-02-19] MEDS ORDERED: methylPREDNISolone 125 MG* 2 ML VIAL IM ONE (13:15)
[2019-02-19] MEDS ORDERED: Albuterol/Ipratropium NEB.SOL* Albuterol 2.5 MG/Ipratropium 0.5 MG 3 ML INH ONE (13:15)
[2019-02-19] MEDS ORDERED: Benzonatate CAP* 100 MG PO ONE (13:16)
[2019-02-19 13:20] VITALS: BP 122/65
== END 2019-02-19 14:47 | disposition home or self-care (01) ==
LOC: UCEAST 13:01
DX: J45.901 Unspecified asthma with (acute) exacerbation (principal); J02.9 Acute pharyngitis, unspecified; J34.89 Other specified disorders of nose and nasal sinuses; F17.210 Nicotine dependence, cigarettes, uncomplicated; Z88.8 Allergy status to other drugs, medicaments and biological substances
CPT/HCPCS: 71046; 96372; 99212; A9270-GY; G0463; J2930